=== PATIENT | female | born 1980 | race Caucasian/White ===

== ENCOUNTER 2019-07-28 20:21 | Emergency (ER) | payer SELFPAY ==
[2019-07-28 20:23] VITALS: BMI 23.0
--- NOTE | 2019-07-28 20:23 | ED_ITS ---
Entered by Varsha Latif acting as scribe for Documented by User: Andrew Palomino MD 07/28/19 21:13 HPI - Neuro Symptoms/Deficit General: Chief Complaint: Neuro Symptoms/Deficit Stated Complaint: STROKE LIKE SYMPTOMS Time Seen by Provider: 07/28/19 20:23 [facility] ED PFSH: Social History (Updated 07/16/19 @ 13:16 by Vicki Salazar LPN) Smoking and tobacco status: never smoked Course Vital Signs: Vital signs: Vital Signs Temperature 98.2 F 07/28/19 22:35 Pulse Rate 86 07/28/19 22:35 Respiratory Rate 18 07/28/19 22:35 Blood Pressure 148/81 07/28/19 22:35 Pulse Oximetry 97 07/28/19 22:05 MDM - Neuro Symptoms/Deficit Lab Data: Labs: Lab Results 07/28/19 07/28/19 07/28/19 Range/Units 20:34 20:34 20:34 WBC 6.8 (4.0-10.0) 10^3/ uL RBC 4.00 L (4.1-5.3) 10^6/u L Hgb 12.7 (11.5-15.3) g/dL Hct 37.3 (37.0-47.0) % MCV 93.3 (81-99) fL MCH 31.8 (28.0-34.0) pg MCHC 34.0 (30.0-36.0) g/dL RDW 12.1 (12.1-15.1) % Plt Count 197 (130-400) 10^3/c mm MPV 9.9 (7.4-10.4) fL Neut % (Auto) 48.3 % Lymph % (Auto) 39.7 % [place] % (Auto) 9.6 % Eos % (Auto) 1.5 % Baso % (Auto) 0.6 % Neut # (Auto) 3.3 (1.8-7.7) 10^3/u L Lymph # (Auto) 2.7 (0.8-4.8) 10^3/u L [place] # (Auto) 0.7 (0.2-0.9) 10^3/u L Eos # (Auto) 0.1 (0.0-0.8) 10^3/u L Baso # (Auto) 0.0 (0.0-0.1) 10^3/u L Nucleated RBC % (a uto) 0 % Nucleated RBCs # 0.0 /100WBC PT 13.40 H (10.5-13.3) SECO NDS INR 0.99 (0.8-1.2) APTT 31.3 (23.9-36.7) SECO NDS Sodium 138 (136-145) mmol/L Potassium 3.6 (3.5-5.1) mmol/L Chloride 102 (98-107) mmol/L Carbon Dioxide 23 (22-29) mmol/L Anion Gap 16.6 (5-19) BUN 9 (6-20) mg/dL Creatinine 0.7 (0.5-0.9) mg/dL GFR Calculation 94.7 (90-130) mL/min Glucose 115 (65-115) mg/dL Calcium 10.1 (8.5-10.5) mg/dL Total Bilirubin 0.7 (0.15-1.2) mg/dL AST 58 H (0-32) U/L ALT 101 H (0-33) U/L Alkaline Phosphata se 74 (35-105) IU/L Total Protein 7.7 (6.6-8.7) g/dL Albumin 4.2 (3.5-5.2) g/dL Globulin 3.5 (1.3-4.6) g/dL Discharge Plan Discharge Patient Disposition: Left Against Medical Advice Clinical Impression: Acute right hemiparesis, History of tympanomastoidectomy Condition: Stable Prescriptions: Continued hydroxyzine HCl 10 mg tablet 10 mg PO .four times daily PRNRF: 0 Referrals: Stephen Baker DO [Primary Care Provider] - Discharge Date/Time: 07/28/19 22:36 Coding Level of Care Code ED Military Pay Technician for Chg Fwd Documented by User: Jeffery Vazquez MD, [facility] [facility] 07/28/19 23:10 HPI - Neuro Symptoms/Deficit General: Chief Complaint: Neuro Symptoms/Deficit Stated Complaint: STROKE LIKE SYMPTOMS Time Seen by Provider: 07/28/19 20:23 Source: patient and RN notes reviewed Mode of arrival: wheelchair Limitations: physical limitation History of Present Illness: HPI Narrative: 38 yo female presents to ED with stroke like symptoms: loss of feeling in the R side of her face, her R arm, her R leg. The patient states this began 30 minutes ago. She said she had a busted R ear drum and had reconstructive surgery in [place], [place] on 07.25.2019. The patient states she ran a fever today and she took ibuprofen. Patient had a tympanomastoidectomy 3 days ago on the right. 30 minutes prior to arrival she developed right-sided facial and body numbness as well as right-sided upper and lower extremity weakness. No speech difficulties. Onset (ago): minute(s) (30) Time: 19:50 Last Observed Normal: 19:50 Timing confirmed by: family member and other (patient (alert and oriented)) Location: right face, right arm and right leg History of same: No Severity: severe Quality: weak, numb and constant Relieving factors: none Exacerbating factors: none Context: sudden onset On Anticoagulants: No Associated symptoms: Reports chest pain and weakness; Deny headache(s), nausea or vomiting Treatments Prior to Arrival: other (ibuprofen) Review of Systems General: Reports: 10 or more systems reviewed and unremarkable except in HPI and below Const: Denies: fever, chills or body aches Eyes: Reports: blind spots; Denies: change in vision or blurry vision ENMT: Denies: throat pain, enlarged tonsils, painful swallowing, hoarseness, mouth pain or swelling of lips/tongue Card: Reports: chest pain; Denies: palpitations, irregular heart rhythm, edema or swelling of feet/ankles Resp: Denies: shortness of breath, productive cough or non-productive cough GI: Denies: abdominal pain, nausea or vomiting : Denies: flank pain, difficulty urinating, painful urination, urinary frequency, urinary urgency or urinary hesitancy Musc: Denies: neck pain, back pain or extremity swelling Skin/Breast: Reports: rash; Denies: itching or redness Neuro: Reports: numbness in extremities, weakness in extremities, changes in sensation, lack of coordination and difficulty walking; Denies: headache, slurred speech or seizure-like activity Endo: Denies: excessive urination, excessive thirst or tired all the time PFSH ED PFSH: Social History (Updated 07/16/19 @ 13:16 by Vicki Salazar LPN) Smoking and tobacco status: never smoked NIH stroke score NIHSS: Level Of Consciousness - 1a: 0 Level Of Consciousness Questions - 1b: Both Correct Level Of Consciousness Commands - 1c: Both Correct Best Gaze - 2: Normal Visual Love - 3: No Visual Loss Facial Palsy - 4: Normal (R) Motor Arm Right - 5: Drift Motor Arm Left - 5: No Drift Motor Leg Right - 6: Effort Against Geyser Motor Leg Left - 6: No Drift Limb Ataxia - 7: Present In One Limb Sensory - 8: Severe To Total Loss (R) Best Language - 9: No Aphasia Dysarthia - 10: Normal Extinction And Inattention - 11: 0 Score: Total Score: 6 Physical Exam Const: COMMON NORMALS: no apparent distress, average body habitus, oriented x3, no limitations, healthy appearing, alert and well nourished HENMT: COMMON NORMALS: normocephalic, head/scalp atraumatic and moist oral mucous membranes HEAD & SCALP: normocephalic and atraumatic Eye: COMMON NORMALS: PERRL, EOMs intact bilaterally, conjunctivae normal and no scleral icterus CONJUNCTIVA: Yes conjunctivae normal PUPIL: Yes PERRL Neck/C-Spine: COMMON NORMALS: full ROM, supple, no meningeal signs, no JVD and no carotid bruits Chest: COMMONS NORMALS: inspection of chest normal and palpation of chest normal Resp: COMMON NORMALS: normal respiratory effort, no retractions, no use of accessory muscles, clear to auscultation bilaterally and percussion normal AUSCULTATION: clear to auscultation bilaterally PERCUSSION: percussion normal Cardio: COMMON NORMALS: no JVD, regular rate, regular rhythm, S1 normal heart sound, S2 normal heart sound, no gallops, no clicks, no murmurs, no rub and peripheral pulses 2+ throughout RATE: regular rate RHYTHM: regular rhythm HEART SOUNDS: S1 normal and S2 normal PERIPHERAL PULSES: pulses 2+ throughout GI: COMMON NORMALS: normal to inspection, nondistended, normoactive bowel sounds, soft to palpation, non-tender, no hepatosplenomegaly, no masses and no bruits PALPATION: Yes soft and Yes no hepatosplenomegaly : COMMON NORMALS: Yes no CVA tenderness BLADDER/KIDNEY EXAM: Yes no CVA tenderness Back/Pelvis: COMMON NORMALS: no CVA tenderness Extremity: COMMON NORMALS: normal to inspection, full ROM, normal capillary refill, no calf tenderness and no pedal edema Neuro: COMMON NORMALS: oriented x3 SENSORIUM/ORIENTATION: Yes alert MENINGEAL SIGNS: Yes no meningeal signs Skin: COMMON NORMALS: no wounds, skin turgor normal, no jaundice, no petechiae and no mottling GENERAL SKIN EXAM: turgor normal RASHES: rashes noted (Erythematous rash noted around the right side of lower face, and neck, and upper chest) Course Reevaluation(s): Reevaluation #1: The patient states that she wants to leave AGAINST MEDICAL ADVICE and have her family drive her up to [place] where the surgery was done. She continues to gain more strength on the right side of her body. She understands the risks involved including worsening of her condition and possibly . She however wants to drive up to [place] so she can be evaluated. Time: 22:29 Consultations: Consultation #1: Dr. Palomino, neurology. Vital Signs: Vital signs: Vital Signs Temperature 98.2 F 07/28/19 22:35 Pulse Rate 86 07/28/19 22:35 Respiratory Rate 18 07/28/19 22:35 Blood Pressure 148/81 07/28/19 22:35 Pulse Oximetry 97 07/28/19 22:05 MDM - Neuro Symptoms/Deficit MDM Narrative: Medical decision making narrative: 38-year-old female patient who is postop day 3 status post right tympanomastoidectomy. Today she developed a fever, erythematous rashes on her face neck and upper chest and subsequently developed right hemiparesis and paresthesia. Initial NIH score was 6, but she rapidly improved and her NIH score went down to about a 2 before she left the department. Head CT and head and neck CTA were both negative for acute findings. Since she had rapid improvement and especially as she had recent intracranial surgery after discussion between the patient and neurology it was decided that the risks of TPA outweigh the benefits in this patient. She therefore was not given TPA. She is however at risk for an intracranial infection and the plan was to further evaluate her with an MRI and possible lumbar puncture. The patient however was unwilling to wait and decided to leave AGAINST MEDICAL ADVICE as she wanted her family to drive her up to [place]. The patient was counseled on the risks involved which include worsening of her symptoms and possible . She however insisted and signed out AGAINST MEDICAL ADVICE. Medical Records: Attestation: I reviewed the patient's medical records. Lab Data: Attestation: I reviewed the patient's lab results. Labs: Lab Results 07/28/19 07/28/19 07/28/19 Range/Units 20:34 20:34 20:34 WBC 6.8 (4.0-10.0) 10^3/ uL RBC 4.00 L (4.1-5.3) 10^6/u L Hgb 12.7 (11.5-15.3) g/dL Hct 37.3 (37.0-47.0) % MCV 93.3 (81-99) fL MCH 31.8 (28.0-34.0) pg MCHC 34.0 (30.0-36.0) g/dL RDW 12.1 (12.1-15.1) % Plt Count 197 (130-400) 10^3/c mm MPV 9.9 (7.4-10.4) fL Neut % (Auto) 48.3 % Lymph % (Auto) 39.7 % [place] % (Auto) 9.6 % Eos % (Auto) 1.5 % Baso % (Auto) 0.6 % Neut # (Auto) 3.3 (1.8-7.7) 10^3/u L Lymph # (Auto) 2.7 (0.8-4.8) 10^3/u L [place] # (Auto) 0.7 (0.2-0.9) 10^3/u L Eos # (Auto) 0.1 (0.0-0.8) 10^3/u L Baso # (Auto) 0.0 (0.0-0.1) 10^3/u L Nucleated RBC % (a uto) 0 % Nucleated RBCs # 0.0 /100WBC PT 13.40 H (10.5-13.3) SECO NDS INR 0.99 (0.8-1.2) APTT 31.3 (23.9-36.7) SECO NDS Sodium 138 (136-145) mmol/L Potassium 3.6 (3.5-5.1) mmol/L Chloride 102 (98-107) mmol/L Carbon Dioxide 23 (22-29) mmol/L Anion Gap 16.6 (5-19) BUN 9 (6-20) mg/dL Creatinine 0.7 (0.5-0.9) mg/dL GFR Calculation 94.7 (90-130) mL/min Glucose 115 (65-115) mg/dL Calcium 10.1 (8.5-10.5) mg/dL Total Bilirubin 0.7 (0.15-1.2) mg/dL AST 58 H (0-32) U/L ALT 101 H (0-33) U/L Alkaline Phosphata se 74 (35-105) IU/L Total Protein 7.7 (6.6-8.7) g/dL Albumin 4.2 (3.5-5.2) g/dL Globulin 3.5 (1.3-4.6) g/dL Imaging Data^: CT Head: Radiologist's impression: [place] [address] CT Scan Report Signed Patient: Medardo Caputo #: [id number] : 1980Acct#:[id number] Age/Sex: 38 / FADM Date: 07/28/19 [facility] Attending Dr: Ordering Provider/Ordering MD: Jeffery Vazquez MD, [facility] [place] Date of Service: 07/28/19 Procedure(s): CT head wo con* [id number] Accession Number(s): [id number] Report Number: [id number] PROCEDURE INFORMATION: Exam: CT Head Without Contrast Exam date and time: 07/28/2019 8:31 PM Age: 38 years old Clinical indication: Weakness, extremity; Right; Prior surgery; Surgery date: Post-operative (0-2 days); Surgery type: R ear; Patient HX: C/O sudden onset R sided weakness; Additional info: Symptoms of acute stroke TECHNIQUE: Imaging protocol: Computed tomography of the head without contrast. Total DLP: 874.74 mGy-cm Radiation optimization: All CT scans at this facility use at least one of these dose optimization techniques: automated exposure control; mA and/or kV adjustment per patient size (includes targeted exams where dose is matched to clinical indication); or iterative reconstruction. Other technique: STROKE PROTOCOL was implemented. COMPARISON: No relevant prior studies available. FINDINGS: Brain: There is no evidence of infarct, sim-white matter differentiation is preserved. There is no hemorrhage or extra-axial collection. There is no mass. Ventricles: There is no hydrocephalus. Bones/joints: Unremarkable. No acute fracture. Sinuses: Visualized sinuses are unremarkable. No fluid levels. Mastoid air cells: There is fluid in the right middle ear and mastoid air cells. Auditory system: There is fluid or soft tissue in the right external auditory canal. Soft tissues: There is a sebaceous cyst on the right near the vertex. CT/CT head wo con* [id number] IMPRESSION: No intracranial lesion or injury. ASSESSMENT: ASPECTS (Nathalia Stroke Program Early CT Score) is 10 Radiation Dose CTDIVOL = (mGy): DLP = 874.74 (mGy-cm) Dictated By:Bran Brandt MD Signed By:Bran Brandt MDSigned Date/Time:07/28/192054 DD/ Other CT: Radiologist's impression: [place] [address] CT Scan Report Signed Patient: Medardo Caputo #: [id number] : 1980Acct#:[id number] Age/Sex: 38 / FADM Date: 07/28/19 Loc: ERRoom/Bed: Attending Dr: Ordering Provider/Ordering MD: Jeffery Vazquez MD, [facility] [place] Date of Service: 07/28/19 Procedure(s): CT angio headneck* [id number] Accession Number(s): [id number] Report Number: [id number] PROCEDURE INFORMATION: Exam: CT Angiography Head With Contrast Exam date and time: 07/28/2019 8:31 PM Age: 38 years old Clinical indication: Prior surgery; Surgery date: Post-operative (0-2 days); Surgery type: R ear; Patient HX: C/O sudden onset R sided weakness; Additional info: Right sided weakness TECHNIQUE: Imaging protocol: Computed tomography angiography of the head with intravenous contrast. 3D rendering: MIP and/or 3D reconstructed images were created by the technologist. Total DLP: 2294.11 mGy-cm Radiation optimization: All CT scans at this facility use at least one of these dose optimization techniques: automated exposure control; mA and/or kV adjustment per patient size (includes targeted exams where dose is matched to clinical indication); or iterative reconstruction. Contrast material: OMNI 350; Contrast volume: 95 ml; Contrast route: 20G; COMPARISON: CT head wo con* [id number] 07/28/2019 8:43 PM FINDINGS: Right internal carotid artery: Unremarkable. Intracranial segment is patent with no significant stenosis. No aneurysm. Right anterior cerebral artery: Unremarkable. No occlusion or significant stenosis. No aneurysm. Right middle cerebral artery: Unremarkable. No occlusion or significant stenosis. No aneurysm. Right posterior cerebral artery: Unremarkable. No occlusion or significant stenosis. No aneurysm. Right vertebral artery: Unremarkable. No occlusion or significant stenosis. No aneurysm. Left internal carotid artery: Unremarkable. Intracranial segment is patent with no significant stenosis. No aneurysm. Left anterior cerebral artery: Unremarkable. No occlusion or significant stenosis. No aneurysm. Left middle cerebral artery: Unremarkable. No occlusion or significant stenosis. No aneurysm. Left posterior cerebral artery: Unremarkable. No occlusion or significant stenosis. No aneurysm. Left vertebral artery: Unremarkable. No occlusion or significant stenosis. No aneurysm. Basilar artery: Unremarkable. No occlusion or significant stenosis. No aneurysm. NO EVIDENCE OF DURAL VENOUS STENOSIS OR OCCLUSION. IMPRESSION: Normal head CTA PROCEDURE INFORMATION: Exam: CT Angiography Neck With Contrast Exam date and time: 07/28/2019 8:31 PM Age: 38 years old Clinical indication: Prior surgery; Surgery date: Post-operative (0-2 days); Surgery type: R ear; Patient HX: C/O sudden onset R sided weakness; Additional info: Right sided weakness TECHNIQUE: Imaging protocol: Computed tomography angiography of the neck with intravenous contrast. 3D rendering: MIP and/or 3D reconstructed images were created by the technologist. Total DLP: 2294.11 mGy-cm Radiation optimization: All CT scans at this facility use at least one of these dose optimization techniques: automated exposure control; mA and/or kV adjustment per patient size (includes targeted exams where dose is matched to clinical indication); or iterative reconstruction. Contrast material: OMNI 350; Contrast volume: 95 ml; Contrast route: 20G; COMPARISON: CT head wo con* [id number] 07/28/2019 8:43 PM FINDINGS: VASCULATURE: Right common carotid artery: Unremarkable. No stenosis. No dissection or occlusion. Right internal carotid artery: Unremarkable extracranial segment. No stenosis. No dissection or occlusion. Right external carotid artery: Unremarkable. No occlusion or stenosis of the origin. Right vertebral artery: Unremarkable. No stenosis. No dissection or occlusion. Left common carotid artery: Unremarkable. No stenosis. No dissection or occlusion. Left internal carotid artery: Unremarkable extracranial segment. No stenosis. No dissection or occlusion. Left external carotid artery: Unremarkable. No occlusion or stenosis of the origin. Left vertebral artery: The left vertebral artery arises directly from the aortic arch, a normal variant. No stenosis. No dissection. NECK: Bones/joints: No acute fracture. Soft tissues: Normal. No significant soft tissue swelling. CT/CT angio headneck* [id number] IMPRESSION: No carotid or vertebral artery stenosis or dissection. COMMENT: Using NASCET method for measuring degree of carotid artery stenosis: Mild is less than 50% stenosis. Moderate is 50-69% stenosis. Severe is 70-94% stenosis. Near occlusion is 95-99% stenosis. Radiation Dose CTDIVOL = (mGy): DLP = 2294.11~2294.11 (mGy-cm) Dictated By:Bran Brandt MD Signed By:Bran Brandt MDSigned Date/Time:07/28/192100 DD/ Discharge Plan Discharge Patient Disposition: Left Against Medical Advice Clinical Impression: Acute right hemiparesis, History of tympanomastoidectomy Condition: Stable Prescriptions: Continued hydroxyzine HCl 10 mg tablet 10 mg PO .four times daily PRNRF: 0 Referrals: Stephen Baker DO [Primary Care Provider] - Discharge Date/Time: 07/28/19 22:36 Coding Level of Care Code ED Military Pay Technician for g Fwd The documentation recorded by the scribe, Latif,Varsha R, accurately reflects the service I personally performed and the decisions made by , Jeffery Vazquez MD, [facility] [place] Jul 28, 2019 20:21
--- NOTE | 2019-07-28 20:27 | PC.NURSE ---
Received patient to [facility] with complaint of right sided numbness, Patient alert and states she had ear surgery 2 days ago. Patient taken to Ct.
--- NOTE | 2019-07-28 20:30 | CTR_ITS ---
PROCEDURE INFORMATION: Exam: CT Angiography Head With Contrast Exam date and time: 07/28/2019 8:31 PM Age: 38 years old Clinical indication: Prior surgery; Surgery date: Post-operative (0-2 days); Surgery type: R ear; Patient HX: C/O sudden onset R sided weakness; Additional info: Right sided weakness TECHNIQUE: Imaging protocol: Computed tomography angiography of the head with intravenous contrast. 3D rendering: MIP and/or 3D reconstructed images were created by the technologist. Total DLP: 2294.11 mGy-cm Radiation optimization: All CT scans at this facility use at least one of these dose optimization techniques: automated exposure control; mA and/or kV adjustment per patient size (includes targeted exams where dose is matched to clinical indication); or iterative reconstruction. Contrast material: OMNI 350; Contrast volume: 95 ml; Contrast route: 20G; COMPARISON: CT head wo con* [id number] 07/28/2019 8:43 PM FINDINGS: Right internal carotid artery: Unremarkable. Intracranial segment is patent with no significant stenosis. No aneurysm. Right anterior cerebral artery: Unremarkable. No occlusion or significant stenosis. No aneurysm. Right middle cerebral artery: Unremarkable. No occlusion or significant stenosis. No aneurysm. Right posterior cerebral artery: Unremarkable. No occlusion or significant stenosis. No aneurysm. Right vertebral artery: Unremarkable. No occlusion or significant stenosis. No aneurysm. Left internal carotid artery: Unremarkable. Intracranial segment is patent with no significant stenosis. No aneurysm. Left anterior cerebral artery: Unremarkable. No occlusion or significant stenosis. No aneurysm. Left middle cerebral artery: Unremarkable. No occlusion or significant stenosis. No aneurysm. Left posterior cerebral artery: Unremarkable. No occlusion or significant stenosis. No aneurysm. Left vertebral artery: Unremarkable. No occlusion or significant stenosis. No aneurysm. Basilar artery: Unremarkable. No occlusion or significant stenosis. No aneurysm. NO EVIDENCE OF DURAL VENOUS STENOSIS OR OCCLUSION. IMPRESSION: Normal head CTA PROCEDURE INFORMATION: Exam: CT Angiography Neck With Contrast Exam date and time: 07/28/2019 8:31 PM Age: 38 years old Clinical indication: Prior surgery; Surgery date: Post-operative (0-2 days); Surgery type: R ear; Patient HX: C/O sudden onset R sided weakness; Additional info: Right sided weakness TECHNIQUE: Imaging protocol: Computed tomography angiography of the neck with intravenous contrast. 3D rendering: MIP and/or 3D reconstructed images were created by the technologist. Total DLP: 2294.11 mGy-cm Radiation optimization: All CT scans at this facility use at least one of these dose optimization techniques: automated exposure control; mA and/or kV adjustment per patient size (includes targeted exams where dose is matched to clinical indication); or iterative reconstruction. Contrast material: OMNI 350; Contrast volume: 95 ml; Contrast route: 20G; COMPARISON: CT head wo con* [id number] 07/28/2019 8:43 PM FINDINGS: VASCULATURE: Right common carotid artery: Unremarkable. No stenosis. No dissection or occlusion. Right internal carotid artery: Unremarkable extracranial segment. No stenosis. No dissection or occlusion. Right external carotid artery: Unremarkable. No occlusion or stenosis of the origin. Right vertebral artery: Unremarkable. No stenosis. No dissection or occlusion. Left common carotid artery: Unremarkable. No stenosis. No dissection or occlusion. Left internal carotid artery: Unremarkable extracranial segment. No stenosis. No dissection or occlusion. Left external carotid artery: Unremarkable. No occlusion or stenosis of the origin. Left vertebral artery: The left vertebral artery arises directly from the aortic arch, a normal variant. No stenosis. No dissection. NECK: Bones/joints: No acute fracture. Soft tissues: Normal. No significant soft tissue swelling. CT/CT angio headneck* [id number] IMPRESSION: No carotid or vertebral artery stenosis or dissection. COMMENT: Using NASCET method for measuring degree of carotid artery stenosis: Mild is less than 50% stenosis. Moderate is 50-69% stenosis. Severe is 70-94% stenosis. Near occlusion is 95-99% stenosis. Radiation Dose CTDIVOL = (mGy): DLP = 2294.11~2294.11 (mGy-cm)
--- NOTE | 2019-07-28 20:30 | CTR_ITS ---
PROCEDURE INFORMATION: Exam: CT Head Without Contrast Exam date and time: 07/28/2019 8:31 PM Age: 38 years old Clinical indication: Weakness, extremity; Right; Prior surgery; Surgery date: Post-operative (0-2 days); Surgery type: R ear; Patient HX: C/O sudden onset R sided weakness; Additional info: Symptoms of acute stroke TECHNIQUE: Imaging protocol: Computed tomography of the head without contrast. Total DLP: 874.74 mGy-cm Radiation optimization: All CT scans at this facility use at least one of these dose optimization techniques: automated exposure control; mA and/or kV adjustment per patient size (includes targeted exams where dose is matched to clinical indication); or iterative reconstruction. Other technique: STROKE PROTOCOL was implemented. COMPARISON: No relevant prior studies available. FINDINGS: Brain: There is no evidence of infarct, sim-white matter differentiation is preserved. There is no hemorrhage or extra-axial collection. There is no mass. Ventricles: There is no hydrocephalus. Bones/joints: Unremarkable. No acute fracture. Sinuses: Visualized sinuses are unremarkable. No fluid levels. Mastoid air cells: There is fluid in the right middle ear and mastoid air cells. Auditory system: There is fluid or soft tissue in the right external auditory canal. Soft tissues: There is a sebaceous cyst on the right near the vertex. CT/CT head wo con* [id number] IMPRESSION: No intracranial lesion or injury. ASSESSMENT: ASPECTS ([place] Stroke Program Early CT Score) is 10 Radiation Dose CTDIVOL = (mGy): DLP = 874.74 (mGy-cm)
--- NOTE | 2019-07-28 20:30 | ECG_ITS ---
Measurements Intervals [place] Rate: 83 P: 250 VA: 162 QRS: 244 QRSD: 85 T: 240 QT: 382 QTc: 449 ECTOPIC ATRIAL RHYTHM POSSIBLY, ARM LEAD REVERSAL MARKED RIGHT AXIS DEVIATION [QRS AXIS > 100] MARKED T-WAVE ABNORMALITY, CONSIDER INFERIOR ISCHEMIA [-0.5+ mV T WAVE IN II/aVF] No previous ECG available for comparison Electronically Signed On 07-29-2019 17:07:52 GLASS ARTIST by Maylin Berg M.D. [email or web address]
[2019-07-28 20:39] LABS: Basophils % 0.6 %; Eosinophils # 0.1 10^3/uL (0.0-0.8); Eosinophils % 1.5 %; Hematocrit 37.3 % (37.0-47.0); Hemoglobin 12.7 g/dL (11.5-15.3); Lymphocytes # 2.7 10^3/uL (0.8-4.8); Lymphocytes % 39.7 %; Mean Corpuscular Hemoglobin 31.8 pg (28.0-34.0); Mean Corpuscular Volume 93.3 fL (81-99); Mean Platelet Volume 9.9 fL (7.4-10.4); Monocytes # 0.7 10^3/uL (0.2-0.9); Monocytes % 9.6 %; Neutrophils # 3.3 10^3/uL (1.8-7.7); Neutrophils % 48.3 %; Nucleated Red Blood Cells % 0 %; Platelet Count 197 10^3/cmm (130-400); Red Cell Distribution Width 12.1 % (12.1-15.1); White Blood Count 6.8 10^3/uL (4.0-10.0)
--- NOTE | 2019-07-28 20:40 | PC.NURSE ---
Stroke cooridinator in room to access patient.
[2019-07-28] MEDS: iohexol 350 mg/mL 100 mL Btl IV (20:49)
[2019-07-28 20:50] LABS: INR 0.99 (0.8-1.2); Partial Thromboplastin Time 31.3 SECONDS (23.9-36.7)
[2019-07-28 20:56] LABS: Alanine Aminotransferase 101 U/L (0-33); Albumin Level 4.2 g/dL (3.5-5.2); Alkaline Phosphatase 74 IU/L (35-105); Anion Gap 16.6 (5-19); Aspartate Amino Transferase 58 U/L (0-32); Blood Urea Nitrogen 9 mg/dL (6-20); Calcium 10.1 mg/dL (8.5-10.5); Carbon Dioxide 23 mmol/L (22-29); Chloride 102 mmol/L (98-107); Globulin 3.5 g/dL (1.3-4.6); Glomerular Filtration Rate 94.7 mL/min (90-130); Glucose 115 mg/dL (65-115); Potassium 3.6 mmol/L (3.5-5.1); Sodium 138 mmol/L (136-145); Total Bilirubin 0.7 mg/dL (0.15-1.2); Total Protein 7.7 g/dL (6.6-8.7)
--- NOTE | 2019-07-28 21:13 | P.PNCC_ITS ---
Stroke Alert Activation ED Arrival Date: 07/28/19 Last Known Normal/at Baseline: < 1 hour ago (1939) Stroke Alert Activated by: er Stroke Alert Activation Date: 07/28/19 Stroke Alert Activation Time: 20:25 Stroke MD @ Bedside Date: 07/28/19 Stroke MD @ Bedside Time: 20:55 NIH Stroke Scale Time: 20:55 NIH Stroke Scale Score: NIH Stroke Scale Score: 2 NIH stroke score NIHSS: Level Of Consciousness - 1a: 0 Level Of Consciousness Questions - 1b: Both Correct Level Of Consciousness Commands - 1c: Both Correct Best Gaze - 2: Normal Visual Love - 3: No Visual Loss Facial Palsy - 4: Normal Motor Arm Right - 5: Drift Motor Arm Left - 5: No Drift Motor Leg Right - 6: No Drift Motor Leg Left - 6: No Drift Limb Ataxia - 7: Absent Sensory - 8: Mild To Moderate Loss Best Language - 9: No Aphasia Dysarthia - 10: Normal Extinction And Inattention - 11: 0 Score: Total Score: 2 Stroke Alert Data/Treatment Time to CT of Head: 20:30 tPA Contraindication: tPA Contraindication: Treatment not indcated and Medical contraindication Other Information: The initial NIHSS was 6, for my exam it has improved to 2. She has rapidly improving deficits. She also has recent major cranial surgery with potential infectious complications. In my opinion the balance of risk benefit is against administration of TPA. There is no large vessel occlusion that would be a target for endovascualar therapy. There was no obvious mass or abscess on the contrasted CTA, but this was an suboptimal study to evaluate for posterior fossa pathology. I discussed this with her and she agrees that potential hemorrhagic complications outweigh the benefits given her presently mild right sided numbness and weakness. She elects against TPA. I would recommend that she be evaluated by her surgeons for possible infectious complications given her report of persistent fever and development of new rash. She does not clinically appear to have bacterial meningitis at this time, but this is a potential complication of her recent surgery. She likely should have an MRI brain with and without contrast to evaluate for abscess/mastoiditis. There should be a low threshold for a lumbar puncture. Critical Care Time Critical Care Time: 30 - 74 mins Coding Level of Care Code Acute [employer] Operator for Yusef Garber
[2019-07-28 22:05] VITALS: RESP 18; O2SAT 97
--- NOTE | 2019-07-28 22:20 | PC.NURSE ---
Patient wishes to leave [facility] and will have her family drive her to other hospital, notified.
--- NOTE | 2019-07-28 22:33 | PC.NURSE ---
Patient signed AMA form states she is going directly to [facility]. Iv removed with cath tip intact.
[2019-07-28 22:35] VITALS: BP 148/81; PULSE 86; RESP 18; TEMP 36.8
== END 2019-07-28 22:36 | disposition left against medical advice (07) ==
PROVIDERS: Emergency Provider Family Medicine; PCP Family Medicine
DX: G81.91 Hemiplegia, unspecified affecting right dominant side (principal); Z98.890 Other specified postprocedural states; Z53.29 Procedure and treatment not carried out because of patient's decision for other reasons
CPT/HCPCS: 12345; 70450; 70496; 70498; 80053; 85025; 85610; 85730; 93005; 99282; 99284; Q9967

== ENCOUNTER 2019-11-27 14:23 | Emergency (ER) | payer SELFPAY ==
[2019-11-27 14:27] VITALS: BP 131/75; PULSE 66; RESP 17; TEMP 36.7; O2SAT 98; BMI 23.0
[2019-11-27 14:49] VITALS: O2SAT 98
[2019-11-27 14:58] LABS: Basophils # 0.1 10^3/uL (0.0-0.1); Basophils % 0.9 %; Eosinophils # 0.1 10^3/uL (0.0-0.8); Eosinophils % 1.9 %; Hematocrit 42.8 % (37.0-47.0); Hemoglobin 14.1 g/dL (11.5-15.3); Lymphocytes # 2.4 10^3/uL (0.8-4.8); Lymphocytes % 41.6 %; Mean Corpuscular HGB Conc 32.9 g/dL (30.0-36.0); Mean Corpuscular Volume 100.2 fL (81-99); Mean Platelet Volume 10.4 fL (7.4-10.4); Monocytes # 0.5 10^3/uL (0.2-0.9); Monocytes % 8.1 %; Neutrophils # 2.7 10^3/uL (1.8-7.7); Neutrophils % 47.1 %; Nucleated Red Blood Cells % 0 %; Platelet Count 203 10^3/cmm (130-400); Red Blood Count 4.27 10^6/uL (4.1-5.3); Red Cell Distribution Width 12.8 % (12.1-15.1); White Blood Count 5.7 10^3/uL (4.0-10.0)
--- NOTE | 2019-11-27 15:10 | ED_ITS ---
HPI - Nausea/Vomiting/Diarrhea General: Chief complaint: Nausea/Vomiting/Diarrhea Stated complaint: n/v/ hep c Time Seen by Provider: 11/27/19 14:24 History of Present Illness: HPI Narrative: Patient complains of nausea and vomiting for the past 2 weeks. She states that she primarily throws up the mornings and evenings. She states she cannot be as her tubes are tied. She is running no fever. She denies any diarrhea. Patient does not complain o f abdominal pain. MD elicited complaint: nausea and vomiting Review of Systems General: Reports: 10 or more systems reviewed and unremarkable except in HPI and below PFSH ED PFSH: Social History Smoking and tobacco status: former smoker Alcohol intake: former Physical Exam Const: COMMON NORMALS: no acute distress, healthy appearing and well nourished GENERAL APPEARANCE: cooperative and well developed HENMT: COMMON NORMALS: normocephalic and atraumatic HEAD & SCALP: normal to inspection, normocephalic and atraumatic Eye: GENERAL EYE: appearance normal, both eyes and all related structures Neck/C-Spine: COMMON NORMALS: full ROM, no lymphadenopathy and no meningeal signs GENERAL: Yes normal visual inspection CERVICAL SPINE: Yes cervical ROM normal and Yes normal cervical lordosis Chest: COMMONS NORMALS: normal inspection of the chest and normal palpation of entire chest wall Resp: COMMON NORMALS: normal respiratory effort, clear to auscultation bilaterally and percussion normal AUSCULTATION: clear to auscultation bilaterally PERCUSSION: percussion normal Cardio: COMMON NORMALS: regular rate, regular rhythm, S1 normal heart sound present and S2 normal heart sound present JUGULAR VENOUS DISTENTION: no JVD PALPATION: normal PMI RATE: regular rate RHYTHM: regular rhythm HEART SOUNDS: S1 normal heart sound present and S2 normal heart sound present GI: COMMON NORMALS: Soft to palpation and No hepatosplenomegaly present INSPECTION: Yes normal to inspection PALPATION: Yes Soft to palpation and Yes No hepatosplenomegaly present PERCUSSION: normal to percussion : COMMON NORMALS: Yes no CVA tenderness BLADDER/KIDNEY EXAM: Yes no CVA tenderness Back/Pelvis: COMMON NORMALS: no CVA tenderness, thoracic and lumbar spine normal to inspection and thoraco-lumbar ROM normal Extremity: COMMON NORMALS: normal to inspection, full ROM and capillary refill normal Neuro: MENINGEAL SIGNS: Yes no meningeal signs Skin: COMMON NORMALS: no rashes or lesions noted, no wounds and turgor normal GENERAL SKIN EXAM: no rashes or lesions noted, elasticity normal and turgor normal LESIONS: no lesions RASHES: no rashes TRAUMA: no lacerations or abrasions HAIR: normal NAILS: normal Course Vital Signs: Vital signs: Vital Signs Temperature 98.1 F 11/27/19 14:27 Pulse Rate 66 11/27/19 14:27 Respiratory Rate 17 11/27/19 14:27 Blood Pressure 131/75 11/27/19 14:27 Pulse Oximetry 98 11/27/19 14:49 MDM - Nausea/Vomiting/Diarrhea Lab Data: Labs: Lab Results 11/27/19 11/27/19 11/27/19 Range/Units 14:43 14:43 14:43 WBC 5.7 (4.0-10.0) 10^3/ uL RBC 4.27 (4.1-5.3) 10^6/u L Hgb 14.1 (11.5-15.3) g/dL Hct 42.8 (37.0-47.0) % MCV 100.2 H (81-99) fL MCH 33.0 (28.0-34.0) pg MCHC 32.9 (30.0-36.0) g/dL RDW 12.8 (12.1-15.1) % Plt Count 203 (130-400) 10^3/c mm MPV 10.4 (7.4-10.4) fL Neut % (Auto) 47.1 % Lymph % (Auto) 41.6 % [place] % (Auto) 8.1 % Eos % (Auto) 1.9 % Baso % (Auto) 0.9 % Neut # (Auto) 2.7 (1.8-7.7) 10^3/u L Lymph # (Auto) 2.4 (0.8-4.8) 10^3/u L [place] # (Auto) 0.5 (0.2-0.9) 10^3/u L Eos # (Auto) 0.1 (0.0-0.8) 10^3/u L Baso # (Auto) 0.1 (0.0-0.1) 10^3/u L Nucleated RBC % (a uto) 0 % Nucleated RBCs # 0.0 /100WBC PT 12.90 (10.5-13.3) SECO NDS INR 0.95 (0.8-1.2) APTT 29.1 (23.9-36.7) SECO NDS Sodium 139 (136-145) mmol/L Potassium 4.0 (3.5-5.1) mmol/L Chloride 103 (98-107) mmol/L Carbon Dioxide 26 (22-29) mmol/L Anion Gap 14.0 (5-19) BUN 7 (6-20) mg/dL Creatinine 0.5 (0.5-0.9) mg/dL GFR Calculation 138.8 H (90-130) mL/min Glucose 97 (65-115) mg/dL Calculated Osmolal ity 284 L (285-295) mOsm/k g Lactate (0.5-2.2) mmol/L Calcium 9.7 (8.5-10.5) mg/dL Phosphorus 2.7 (2.5-4.5) mg/dL Magnesium 2.2 (1.7-2.3) mg/dL Total Bilirubin 0.4 (0.15-1.2) mg/dL AST 123 H (0-32) U/L ALT 158 H (0-33) U/L Alkaline Phosphata se 80 (35-105) IU/L Total Protein 7.4 (6.6-8.7) g/dL Albumin 4.7 (3.5-5.2) g/dL Globulin 2.7 (1.3-4.6) g/dL Lipase 33 (13-60) U/L TSH 1.10 (0.27-4.20) uIU/ mL HCG, Qual (Negative) Urine Color (Yellow) Urine Appearance (CLEAR) Urine pH (5-7) Ur Specific Gravit y (1.005-1.030) Urine Protein (Negative) Urine Glucose (UA) (Normal) Urine Ketones (Negative) Urine Blood (Negative) Urine Nitrate (Negative) Urine Bilirubin (NEGATIVE) Urine Urobilinogen (Negative) mg/dL Ur Leukocyte Bisi ase (Negative) Urine Opiates Scre en (Negative) ng/mL Ur Barbiturates Sc reen (Negative) ng/mL Ur Phencyclidine S crn (Negative) ng/mL Ur Amphetamines Sc reen (Negative) ng/mL U Benzodiazepines Scrn (Negative) ng/mL Urine Cocaine Scre en (Negative) ng/mL U Marijuana (THC) Screen (Negative) ng/mL 11/27/19 11/27/19 11/27/19 Range/Units 14:43 14:43 15:12 WBC (4.0-10.0) 10^3/ uL RBC (4.1-5.3) 10^6/u L Hgb (11.5-15.3) g/dL Hct (37.0-47.0) % MCV (81-99) fL MCH (28.0-34.0) pg MCHC (30.0-36.0) g/dL RDW (12.1-15.1) % Plt Count (130-400) 10^3/c mm MPV (7.4-10.4) fL Neut % (Auto) % Lymph % (Auto) % [place] % (Auto) % Eos % (Auto) % Baso % (Auto) % Neut # (Auto) (1.8-7.7) 10^3/u L Lymph # (Auto) (0.8-4.8) 10^3/u L [place] # (Auto) (0.2-0.9) 10^3/u L Eos # (Auto) (0.0-0.8) 10^3/u L Baso # (Auto) (0.0-0.1) 10^3/u L Nucleated RBC % (a uto) % Nucleated RBCs # /100WBC PT (10.5-13.3) SECO NDS INR (0.8-1.2) APTT (23.9-36.7) SECO NDS Sodium (136-145) mmol/L Potassium (3.5-5.1) mmol/L Chloride (98-107) mmol/L Carbon Dioxide (22-29) mmol/L Anion Gap (5-19) BUN (6-20) mg/dL Creatinine (0.5-0.9) mg/dL GFR Calculation (90-130) mL/min Glucose (65-115) mg/dL Calculated Osmolal ity (285-295) mOsm/k g Lactate 0.8 (0.5-2.2) mmol/L Calcium (8.5-10.5) mg/dL Phosphorus (2.5-4.5) mg/dL Magnesium (1.7-2.3) mg/dL Total Bilirubin (0.15-1.2) mg/dL AST (0-32) U/L ALT (0-33) U/L Alkaline Phosphata se (35-105) IU/L Total Protein (6.6-8.7) g/dL Albumin (3.5-5.2) g/dL Globulin (1.3-4.6) g/dL Lipase (13-60) U/L TSH (0.27-4.20) uIU/ mL HCG, Qual Negative (Negative) Urine Color Straw (Yellow) Urine Appearance Clear (CLEAR) Urine pH 7.0 (5-7) Ur Specific Gravit y 1.010 (1.005-1.030) Urine Protein Neg (Negative) Urine Glucose (UA) Norm (Normal) Urine Ketones Negative (Negative) Urine Blood Neg (Negative) Urine Nitrate Negative (Negative) Urine Bilirubin Neg (NEGATIVE) Urine Urobilinogen Norm (Negative) mg/dL Ur Leukocyte Bisi ase Negative (Negative) Urine Opiates Scre en (Negative) ng/mL Ur Barbiturates Sc reen (Negative) ng/mL Ur Phencyclidine S crn (Negative) ng/mL Ur Amphetamines Sc reen (Negative) ng/mL U Benzodiazepines Scrn (Negative) ng/mL Urine Cocaine Scre en (Negative) ng/mL U Marijuana (THC) Screen (Negative) ng/mL 11/27/19 Range/Units 15:12 WBC (4.0-10.0) 10^3/ uL RBC (4.1-5.3) 10^6/u L Hgb (11.5-15.3) g/dL Hct (37.0-47.0) % MCV (81-99) fL MCH (28.0-34.0) pg MCHC (30.0-36.0) g/dL RDW (12.1-15.1) % Plt Count (130-400) 10^3/c mm MPV (7.4-10.4) fL Neut % (Auto) % Lymph % (Auto) % [place] % (Auto) % Eos % (Auto) % Baso % (Auto) % Neut # (Auto) (1.8-7.7) 10^3/u L Lymph # (Auto) (0.8-4.8) 10^3/u L [place] # (Auto) (0.2-0.9) 10^3/u L Eos # (Auto) (0.0-0.8) 10^3/u L Baso # (Auto) (0.0-0.1) 10^3/u L Nucleated RBC % (a uto) % Nucleated RBCs # /100WBC PT (10.5-13.3) SECO NDS INR (0.8-1.2) APTT (23.9-36.7) SECO NDS Sodium (136-145) mmol/L Potassium (3.5-5.1) mmol/L Chloride (98-107) mmol/L Carbon Dioxide (22-29) mmol/L Anion Gap (5-19) BUN (6-20) mg/dL Creatinine (0.5-0.9) mg/dL GFR Calculation (90-130) mL/min Glucose (65-115) mg/dL Calculated Osmolal ity (285-295) mOsm/k g Lactate (0.5-2.2) mmol/L Calcium (8.5-10.5) mg/dL Phosphorus (2.5-4.5) mg/dL Magnesium (1.7-2.3) mg/dL Total Bilirubin (0.15-1.2) mg/dL AST (0-32) U/L ALT (0-33) U/L Alkaline Phosphata se (35-105) IU/L Total Protein (6.6-8.7) g/dL Albumin (3.5-5.2) g/dL Globulin (1.3-4.6) g/dL Lipase (13-60) U/L TSH (0.27-4.20) uIU/ mL HCG, Qual (Negative) Urine Color (Yellow) Urine Appearance (CLEAR) Urine pH (5-7) Ur Specific Gravit y (1.005-1.030) Urine Protein (Negative) Urine Glucose (UA) (Normal) Urine Ketones (Negative) Urine Blood (Negative) Urine Nitrate (Negative) Urine Bilirubin (NEGATIVE) Urine Urobilinogen (Negative) mg/dL Ur Leukocyte Bisi ase (Negative) Urine Opiates Scre en Negative (Negative) ng/mL Ur Barbiturates Sc reen Negative (Negative) ng/mL Ur Phencyclidine S crn Negative (Negative) ng/mL Ur Amphetamines Sc reen Negative (Negative) ng/mL U Benzodiazepines Scrn Negative (Negative) ng/mL Urine Cocaine Scre en Negative (Negative) ng/mL U Marijuana (THC) Screen Positive H (Negative) ng/mL Discharge Plan Discharge Patient Disposition: Home, Self-Care Clinical Impression: Cyclical vomiting syndrome Nausea & vomiting Qualifiers: Vomiting type: unspecified Vomiting Intractability: unspecified Qualified Code(s): R11.2 - Nausea with vomiting, unspecified Condition: Stable Prescriptions: New Zofran 4 mg tablet 4 mg PO Q6H PRN (Reason: nausea and vomiting) Qty: 10 RF: 1 No Action Multiple Vitamins Tablet 1 tab PO DAILY RF: 0 lisinopril 20 mg tablet 20 mg PO DAILY RF: 0 promethazine 25 mg tablet See Rx Instructions .ROUTE .COMPLEX RF: 0 Probiotic 1 cap PO DAILY RF: 0 Discharge Orders: Discharge Order (Routine); Ordered 11/27/19 Ordered By: Tristan Quiñones Coding Level of Care Code ED Cigarette Tipper for Bhavyag Fwd Exam Comprehensive
[2019-11-27 15:18] LABS: HCG, Serum Qual Negative (Negative)
[2019-11-27 15:19] LABS: Add Urine Microscopic? NO
[2019-11-27] MEDS: sodium chloride 0.9% 1,000 ML 999 ML IV (15:22)
[2019-11-27] MEDS: ondansetron 2 mg/ML SDV 2 mL 4 MG IVP (15:22)
[2019-11-27 15:29] LABS: Lactate (Lactic Acid level) 0.8 mmol/L (0.5-2.2)
[2019-11-27 15:35] LABS: Alanine Aminotransferase 158 U/L (0-33); Albumin Level 4.7 g/dL (3.5-5.2); Alkaline Phosphatase 80 IU/L (35-105); Aspartate Amino Transferase 123 U/L (0-32); Blood Urea Nitrogen 7 mg/dL (6-20); Calcium 9.7 mg/dL (8.5-10.5); Carbon Dioxide 26 mmol/L (22-29); Chloride 103 mmol/L (98-107); Globulin 2.7 g/dL (1.3-4.6); Glomerular Filtration Rate 138.8 mL/min (90-130); Glucose 97 mg/dL (65-115); Lipase 33 U/L (13-60); Magnesium 2.2 mg/dL (1.7-2.3); Osmolality Calculated 284 mOsm/kg (285-295); Phosphorus 2.7 mg/dL (2.5-4.5); Sodium 139 mmol/L (136-145); Total Bilirubin 0.4 mg/dL (0.15-1.2); Total Protein 7.4 g/dL (6.6-8.7)
[2019-11-27 15:37] LABS: Amphetamines Screen Urine Negative (Negative); Barbiturates Screen Urine Negative (Negative); Benzodiazepines Screen Urine Negative (Negative); Cocaine Screen Urine Negative (Negative); Opiate Screen Urine Negative (Negative); PCP Screen Urine Negative (Negative); THC Screen Urine Positive (Negative)
[2019-11-27 15:41] LABS: Bilirubin Urine Neg (NEGATIVE); Blood Urine Neg (Negative); Glucose Urine UA Norm (Normal); Ketones Urine Negative (Negative); Leukocyte Esterase Urine Negative (Negative); Nitrate Urine Negative (Negative); Protein Urine Neg (Negative); Urine Appearance Clear (CLEAR); Urine Color Straw (Yellow); Urobilinogen Urine Norm (Negative)
[2019-11-27 15:41] LABS: INR 0.95 (0.8-1.2); Partial Thromboplastin Time 29.1 SECONDS (23.9-36.7)
[2019-11-27 16:02] VITALS: BP 116/82; PULSE 52; O2SAT 100
== END 2019-11-27 16:02 | disposition home or self-care (01) ==
PROVIDERS: Emergency Provider Family Medicine
DX: R11.15 Cyclical vomiting syndrome unrelated to migraine (principal); Z87.891 Personal history of nicotine dependence
CPT/HCPCS: 12345; 36415; 80053; 80306; 81003; 83605; 83690; 83735; 84100; 84443; 84703; 85025; 85610; 85730; 87040; 96361; 96374; 96375; 99283; J2405; J7030

== ENCOUNTER → 2019-12-10 12:49 | Outpatient (BNVA) | payer SELFPAY | PROVIDERS: Visit Provider Nurse Practitioner | DX: R05 Cough (principal) | CPT/HCPCS: 87635 ==

== ENCOUNTER 2021-06-13 00:47 | Emergency (ER) | payer BC, SELFPAY ==
[2021-06-13 00:52] VITALS: BP 146/84; PULSE 77; RESP 17; TEMP 36.8; O2SAT 99; BMI 29.1
--- NOTE | 2021-06-13 01:05 | ED_ITS ---
HPI - Abdominal Pain General: Chief Complaint: Abdominal Pain Stated Complaint: pains throughout back and leg Time Seen by Provider: 06/13/21 00:49 History of Present Illness: HPI narrative: Patient is a 40-year-old female comes to the ED with right flank pain. Patient says symptoms started couple hours ago and it was an acute onset of pain. She has never had a pain like this before. She denies any injury or trauma to cause pain. She rates her pain a 9 out of 10 and says it starts in her right mid back and radiates around to her right groin. Torso movements cause worsening pain. Patient says she is never had a kidney stone before. Denies any dysuria or hematuria. Patient started her menstrual period today June 13, 2021. Denies dysuria or hematuria. Associated Symptoms: Denies chills, constipation, diarrhea, dysuria, fever(s), hematochezia, hematuria, nausea and vomiting Related Data: Date of Last Menstrual Period: 06/13/20 Review of Systems Const: Denies: fever(s), chills or fatigue Eyes: Denies: change in vision or eye discomfort ENMT: Denies: throat pain, odynophagia, nasal discharge or nasal congestion Card: Denies: chest pain, palpitations, edema, swelling of feet/ankles, dyspnea on exertion or orthopnea Resp: Denies: dyspnea, productive cough or non-productive cough GI: Denies: abdominal pain, nausea, vomiting, diarrhea, constipation or hematochezia : Reports: flank pain (right flank); Denies: dysuria or hematuria Musc: Denies: neck pain, back pain or extremity swelling Skin/Breast: Denies: rash or new lesions Neuro: Denies: headache(s), numbness in extremities or weakness in extremities PFS ED PFSH: Social History Smoking and tobacco status: former smoker Alcohol intake: former Female Reproductive History: Date of last menstrual period: 06/13/20 Physical Exam Const: COMMON NORMALS: patient oriented x3 and alert GENERAL APPEARANCE: cooperative; not comfortable (pt appears uncomfortable and in some pain) HENMT: COMMON NORMALS: normocephalic HEAD & SCALP: normocephalic MOUTH: Normal oral and palatal mucosa present THROAT: posterior oropharynx normal and uvula midline Eye: COMMON NORMALS: Equal, round and reactive pupils present PUPIL: Yes Equal, round and reactive pupils present Neck/C-Spine: COMMON NORMALS: supple GENERAL: Yes normal visual inspection Resp: COMMON NORMALS: normal respiratory effort, No retractions, No use of accessory muscles and clear to auscultation bilaterally AUSCULTATION: clear to auscultation bilaterally Cardio: COMMON NORMALS: regular rate, regular rhythm, S1 normal heart sound present, S2 normal heart sound present, No gallops present (Cardio), No clicks present (Cardio), No murmurs present (Cardio) and Peripheral pulses 2+ throughout RATE: regular rate RHYTHM: regular rhythm HEART SOUNDS: S1 normal heart sound present and S2 normal heart sound present PERIPHERAL PULSES: Peripheral pulses 2+ throughout GI: COMMON NORMALS: Normal to inspection, nondistended, normoactive bowel sounds present, Soft to palpation, non-tender and no masses PALPATION: Yes Soft to palpation : BLADDER/KIDNEY EXAM: Yes CVA tenderness Back/Pelvis: GENERAL BACK: Yes CVA tenderness CVA tenderness: right THORACIC SPINE/UPPER BACK: Yes paraspinal muscle tenderness Thoracic paraspinal muscle tenderness: right Right thoracic paraspinal muscle tenderness: T8, T9 and T10 Extremity: COMMON NORMALS: normal to inspection Neuro: COMMON NORMALS: patient oriented x3 SENSORIUM/ORIENTATION: Yes alert GAIT: Yes Normal gait present Skin: GENERAL SKIN EXAM: dry skin Course Vital Signs: Vital signs: Vital Signs Temperature 98.2 F 06/13/21 00:52 Pulse Rate 77 06/13/21 00:52 Respiratory Rate 17 06/13/21 00:52 Blood Pressure 146/84 06/13/21 00:52 Pulse Oximetry 99 06/13/21 00:52 MDM - Abdominal Pain MDM Narrative: Medical decision making narrative: Patient is a 40-year-old female comes to the ED with right sided back pain. Symptoms started tonight. Sudden onset of symptoms tonight. Denies any injury or trauma to cause symp toms. She has worsening pain in back with movement. Vital stable. Exam patient still shows some right-sided thoracic paraspinal muscle tenderness along with right CVA tenderness. Rest of exam was benign. CBC, CMP were unremarkable. hCG negative. Urine showed a lot of red blood cells, but patient is currently on menstrual period. CT kidney stone performed and no kidney stones or any other acute findings noted. Patient was given a dose of Toradol and Norflex while here in the ED. She was diagnosed with musculoskeletal back pain and discharged home with a prescription for Celebrex and cyclobenzaprine. She was told to follow-up with her PCP 7 to 10 days for reevaluation. Return to ED precautions given. Patient understood and agree with plan. Lab Data: Attestation: I reviewed the patient's lab results. Labs: Lab Results 06/13/21 06/13/21 06/13/21 01:00 01:10 01:10 WBC 9.8 10^3/uL 10^3/ uL (4.0-10.0) RBC 4.22 10^6/uL 10^6 /uL (4.1-5.3) Hgb 13.9 g/dL g/dL (11.5-15.3) Hct 40.9 % % (37.0-47.0) MCV 96.9 fl fl (81-99) MCH 32.9 pg pg (28.0-34.0) MCHC 34.0 g/dL g/dL (30.0-36.0) RDW 12.2 % % (12.1-15.1) Plt Count 224 10^3/cmm 10^3 /cmm (130-400) MPV 10.3 fL fL (7.4-10.4) Neut % (Auto) 57.6 % % Lymph % (Auto) 31.9 % % Falls % (Auto) 7.7 % % Eos % (Auto) 1.8 % % Baso % (Auto) 0.7 % % Neut # (Auto) 5.64 10^3/uL 10^3 /uL (1.8-7.7) Lymph # (Auto) 3.1 10^3/uL 10^3/ uL (0.8-4.8) Falls # (Auto) 0.8 10^3/uL 10^3/ uL (0.2-0.9) Eos # (Auto) 0.2 10^3/uL 10^3/ uL (0.0-0.8) Baso # (Auto) 0.1 10^3/uL 10^3/ uL (0.0-0.1) Nucleated RBC % (a uto) 0 % % Nucleated RBCs # 0.0 /100WBC /100W BC Sodium 139 mmol/L mmol/L (136-145) Potassium 4.4 mmol/L mmol/L (3.5-5.1) Chloride 102 mmol/L mmol/L (98-107) Carbon Dioxide 27 mmol/L mmol/L (22-29) Anion Gap 14.4 (5-19) BUN 10 mg/dL mg/dL (6-20) Creatinine 0.7 mg/dL mg/dL (0.5-0.9) GFR Calculation 93.6 mL/min mL/mi n (90-130) Glucose 93 mg/dL mg/dL (65-115) Calculated Osmolal ity 287 mOsm/kg mOsm/ kg (285-295) Calcium 8.7 mg/dL mg/dL (8.5-10.5) Total Bilirubin 0.2 mg/dL mg/dL (0.15-1.2) AST 49 U/L H U/L (0-32) ALT 78 U/L H U/L (0-33) Alkaline Phosphata se 86 IU/L IU/L (35-105) Total Protein 7.7 g/dL g/dL (6.6-8.7) Albumin 4.4 g/dL g/dL (3.5-5.2) Globulin 3.3 g/dL g/dL (1.3-4.6) HCG, Qual Urine Color [place] (Yellow) Urine Appearance Sl cloudy A (CLEAR) Urine pH 7 (5-7) Ur Specific Gravit y 1.015 (1.005-1.030) Urine Protein 1+ H (Negative) Urine Glucose (UA) Norm (Normal) Urine Ketones 1+ H (Negative) Urine Blood 3+ H (Negative) Urine Nitrate Negative (Negative) Urine Bilirubin Neg (Negative) Urine Urobilinogen 1 mg/dL H mg/dL (Negative) Ur Leukocyte Bisi ase Trace H (Negative) Urine RBC Too numerous to c nt /hpf H /hpf (0-2) Urine WBC 10-15 /hpf H /hpf (0-5) Ur Squamous Epith Cells 15-25 /hpf H /hpf (0-5) Amorphous Sediment Not Reportable Urine Bacteria 2+ /hpf H /hpf (NONE) 06/13/21 01:10 WBC RBC Hgb Hct MCV MCH MCHC RDW Plt Count MPV Neut % (Auto) Lymph % (Auto) Falls % (Auto) Eos % (Auto) Baso % (Auto) Neut # (Auto) Lymph # (Auto) Falls # (Auto) Eos # (Auto) Baso # (Auto) Nucleated RBC % (a uto) Nucleated RBCs # Sodium Potassium Chloride Carbon Dioxide Anion Gap BUN Creatinine GFR Calculation Glucose Calculated Osmolal ity Calcium Total Bilirubin AST ALT Alkaline Phosphata se Total Protein Albumin Globulin HCG, Qual Negative (Negative) Urine Color Urine Appearance Urine pH Ur Specific Gravit y Urine Protein Urine Glucose (UA) Urine Ketones Urine Blood Urine Nitrate Urine Bilirubin Urine Urobilinogen Ur Leukocyte Bisi ase Urine RBC Urine WBC Ur Squamous Epith Cells Amorphous Sediment Urine Bacteria Imaging Data ^: CT Abd/Pel: Attestation: I personally reviewed and interpreted this imaging study as follows: Radiologist's impression: [id number] [address] [address] Scan Report Signed Patient: Domitila Caputo Unit #: [id number] : [id number] Age/Sex: 40 / F ADM Date: 06/13/21 Loc: ER Room/Bed: Attending Dr: Ordering Provider/Ordering MD: Rocky Becerra Date of Service: 06/13/21 Procedure(s): CT kidney stone 25467 Accession Number(s): [id number] Report Number: [id number] PROCEDURE INFORMATION: Exam: CT Abdomen And Pelvis Without Contrast Exam date and time: 06/13/2021 1:04 AM Age: 40 years old Clinical indication: Abdominal pain; Right; Prior surgery; Surgery type: Appy. Tubal ligation. ; Patient HX: RT flank pain. ; Additional info: Acute right flank pain TECHNIQUE: Imaging protocol: Computed tomography of the abdomen and pelvis without contrast. Radiation optimization: All CT scans at this facility use at least one of these dose optimization techniques: automated exposure control; mA and/or kV adjustment per patient size (includes targeted exams where dose is matched to clinical indication); or iterative reconstruction. COMPARISON: CT Abdomen/Pelvis Renal [id number] 05/28/2019 11:34 PM RADIATION DOSE METRICS: Total DLP (mGy-cm): 1632.43 FINDINGS: Lungs: The lung bases are clear. No effusion Liver: Normal. No mass. Gallbladder and bile ducts: No wall thickening, pericholecystic fluid or stones. Pancreas: Normal. No ductal dilation. Spleen: Normal. No splenomegaly. Adrenal glands: Normal. No mass. Kidneys and ureters: Normal. No hydronephrosis. Stomach and bowel: Unremarkable. No obstruction. No mucosal thickening. Appendix: The appendix is not positively identified. However, no secondary changes of appendicitis are present. Intraperitoneal space: Unremarkable. No free air. No significant fluid collection. Vasculature: Unremarkable. No abdominal aortic aneurysm. Lymph nodes: Unremarkable. No enlarged lymph nodes. Urinary bladder: No nephroureterolithiasis or urinary bladder stone. Reproductive: There has been a tubal ligation. Bones/joints: Unremarkable. No acute fracture. Soft tissues: Unremarkable. CT/CT kidney stone [id number] IMPRESSION: 1. No nephroureterolithiasis or urinary bladder stone. 2. The appendix is not positively identified. However, no secondary changes of appendicitis are present. Dictated By: Justin Bonilla Signed By: Justin Bonilla Signed Date/Time: 06/13/21243 DD/ 3 Discharge Plan Discharge Patient Disposition: Home Clinical Impression: Musculoskeletal back pain Condition: Stable Prescriptions: New Celebrex 100 mg capsule 100 mg PO BID PRN (Reason: pain) Qty: 20 RF: 0 cyclobenzaprine 7.5 mg tablet 7.5 mg PO BID PRN (Reason: muscle spasm) Qty: 20 RF: 0 No Action sulfamethoxazole-trimethoprim [Bactrim DS] 800-160 mg tablet 1 tab PO BID 7 Days Qty: 14 RF: 0 Multiple Vitamins Tablet 1 tab PO DAILY RF: 0 lisinopril 20 mg tablet 20 mg PO DAILY RF: 0 promethazine 25 mg tablet See Rx Instructions .ROUTE .COMPLEX RF: 0 Probiotic 1 cap PO DAILY RF: 0 Zofran 4 mg tablet 4 mg PO Q6H PRN (Reason: nausea and vomiting) Qty: 10 RF: 1 Discharge Orders: Discharge ED (Routine); Ordered 06/13/21 Ordered By: Rocky Becerra Discharge Diet: Regular Discharge Activity: Increase activity as tolerated Patient Instructions: Musculoskeletal Pain (ED), Back Pain (ED) Activity Restrictions/Additional Instructions: Follow-up with medical provider as directed in 7 to 10 days reevaluation. Take medications as prescribed. Cyclobenzaprine is a muscle relaxer and can cause some drowsiness so take at night before going to bed. Stretch back out daily and apply cold pack or heat on back to help with symptoms. Return to the ER or your medical provider if condition worsens. Please read and understand discharge instructions. Thank you for choosing [facility] for your healthcare needs today. Please realize this is an emergency room and that we are providing you with a medical screening exam and this may not be complete and all inclusive of all the testing and or work up that you may need to determine your ailment or severity of your illness. It is very important that you follow up as instructed or that you return to the Emergency Department should you have concerns or if your condition changes or worsens in any way. Stand Alone Forms: Work/School Release Coding Level of Care Code ED Home Health Care Social Worker for Yusef Garber Exam Comprehensive
[2021-06-13 01:45] LABS: Basophils # 0.1 10^3/uL (0.0-0.1); Basophils % 0.7 %; Eosinophils # 0.2 10^3/uL (0.0-0.8); Eosinophils % 1.8 %; Hematocrit 40.9 % (37.0-47.0); Hemoglobin 13.9 g/dL (11.5-15.3); Lymphocytes # 3.1 10^3/uL (0.8-4.8); Lymphocytes % 31.9 %; Mean Corpuscular Hemoglobin 32.9 pg (28.0-34.0); Mean Corpuscular Volume 96.9 fl (81-99); Mean Platelet Volume 10.3 fL (7.4-10.4); Monocytes # 0.8 10^3/uL (0.2-0.9); Monocytes % 7.7 %; Neutrophils # 5.64 10^3/uL (1.8-7.7); Neutrophils % 57.6 %; Nucleated Red Blood Cells % 0 %; Platelet Count 224 10^3/cmm (130-400); Red Blood Count 4.22 10^6/uL (4.1-5.3); Red Cell Distribution Width 12.2 % (12.1-15.1); White Blood Count 9.8 10^3/uL (4.0-10.0)
[2021-06-13 02:03] LABS: Add Urine Microscopic? YES; Bilirubin Urine Neg (Negative); Blood Urine 3+ (Negative); Glucose Urine UA Norm (Normal); Ketones Urine 1+ (Negative); Leukocyte Esterase Urine Trace (Negative); Nitrate Urine Negative (Negative); Protein Urine 1+ (Negative); Specific Gravity, Urine 1.015 (1.005-1.030); Urine Color Orange (Yellow); Urobilinogen Urine 1 mg/dL (Negative); pH Urine 7 (5-7)
[2021-06-13 02:05] LABS: Add Urine Culture? No; Bacteria Urine 2+ /hpf; RBC Urine TOO NUMEROUS TO CNT /hpf (0-2); Squamous Epithelial Cell Urine 15-25 /hpf (0-5)
[2021-06-13 02:06] LABS: HCG, Serum Qual Negative (Negative)
[2021-06-13 02:16] LABS: Alanine Aminotransferase 78 U/L (0-33); Albumin Level 4.4 g/dL (3.5-5.2); Alkaline Phosphatase 86 IU/L (35-105); Anion Gap 14.4 (5-19); Aspartate Amino Transferase 49 U/L (0-32); Blood Urea Nitrogen 10 mg/dL (6-20); Calcium 8.7 mg/dL (8.5-10.5); Carbon Dioxide 27 mmol/L (22-29); Chloride 102 mmol/L (98-107); Globulin 3.3 g/dL (1.3-4.6); Glomerular Filtration Rate 93.6 mL/min (90-130); Glucose 93 mg/dL (65-115); Osmolality Calculated 287 mOsm/kg (285-295); Potassium 4.4 mmol/L (3.5-5.1); Sodium 139 mmol/L (136-145); Total Bilirubin 0.2 mg/dL (0.15-1.2); Total Protein 7.7 g/dL (6.6-8.7)
[2021-06-13] MEDS: ketorolac 60 mg/2 mL INJ IM (02:55)
[2021-06-13] MEDS: orphenadrine 30 mg/mL Inj 2 mL 60 MG IM (02:57)
[2021-06-13 03:00] VITALS: BP 132/76; PULSE 74; RESP 18; O2SAT 99
[2021-06-13 03:14] VITALS: BP 132/76; PULSE 74; RESP 18; O2SAT 99
== END 2021-06-13 03:10 | disposition home or self-care (01) ==
PROVIDERS: Emergency Provider Physician Assistant
DX: M54.9 Dorsalgia, unspecified (principal); Z87.891 Personal history of nicotine dependence
CPT/HCPCS: 74176; 80053; 81001; 84703; 85025; 96372; 99283; J1885; J2360

== ENCOUNTER → 2021-09-14 15:32 | Outpatient (BNVA) | payer BC, SELFPAY | PROVIDERS: PCP Physician Assistant; Visit Provider Internal Medicine | DX: B19.20 Unspecified viral hepatitis C without hepatic coma (principal) | CPT/HCPCS: 82105; 87902 ==

== ENCOUNTER → 2021-11-08 11:00 | Outpatient (BNVA) | payer BC, SELFPAY | PROVIDERS: PCP Physician Assistant; Visit Provider Internal Medicine | DX: Z76.89 Persons encountering health services in other specified circumstances (principal) | CPT/HCPCS: 87522 ==

== ENCOUNTER → 2021-12-05 11:04 | Outpatient (BNVA) | payer BC, SELFPAY | PROVIDERS: PCP Physician Assistant; Visit Provider Internal Medicine | DX: B19.20 Unspecified viral hepatitis C without hepatic coma (principal) | CPT/HCPCS: 87522 ==

== ENCOUNTER → 2023-08-14 09:42 | Outpatient (BNVA) | payer BC, MEDICAID, SELFPAY | PROVIDERS: PCP Physician Assistant; Visit Provider Nurse Practitioner Family | DX: N89.8 Other specified noninflammatory disorders of vagina (principal) | CPT/HCPCS: 81000 ==

== ENCOUNTER → 2024-05-21 14:49 | Outpatient (BNVA) | payer BC, MEDICAID, SELFPAY | PROVIDERS: PCP Physician Assistant; Visit Provider Nurse Practitioner | DX: R39.9 Unspecified symptoms and signs involving the genitourinary system (principal) | CPT/HCPCS: 81000 ==

== ENCOUNTER 2024-08-27 09:59 | Emergency (ER) | payer MEDICAID, SELFPAY ==
[2024-08-27 10:29] VITALS: BP 143/87; PULSE 68; RESP 18; TEMP 36.8; O2SAT 97; BMI 28.2
--- NOTE | 2024-08-27 10:56 | CT_ITS ---
WS: [id number] CT ABDOMEN AND PELVIS WITH CONTRAST HISTORY: periumbilical pain TECHNIQUE: Imaging performed of the abdomen and pelvis with IV contrast. Single phase imaging of the abdomen. Coronal and sagittal reformats are submitted. All CT scans at [facility] use at least one of these dose optimization techniques: automated exposure control; mA and/or kV adjustment per patient size (includes targeted exams where dose is matched to clinical indication); or iterative reconstruction. IV CONTRAST: Omnipaque 350; 100 mL IV. Oral contrast: No DLP: 840.80 mGy.cm COMPARISON: 06/13/2021 Lower thorax: Lung bases are clear. Heart is normal size. No hiatal hernia. Liver/biliary system: Normal size with no intrahepatic dilatation. Gallbladder: Normal. No gallstones or wall thickening. No pericholecystic fluid. Pancreas: Normal size pancreas and pancreatic duct. No adjacent inflammation. Spleen: Normal size spleen. No mass or infarct. Adrenal glands: Normal. Right kidney: Normal. Left kidney: Normal. Extrarenal pelvis. Aorta: Normal. Lymphadenopathy: None. Free fluid: None. GI tract: Normally distended stomach. No small bowel obstruction. Moderate diffuse constipation. Prior appendectomy. No colitis. Abdominal wall: Unremarkable abdominal wall. No hernia. Pelvis: Small amount of free fluid in the pelvis appears physiologic. Bones: Unremarkable. CT/CT abdomen pelvis w con* [id number] IMPRESSION: 1. No acute abdominal or pelvic abnormalities. 2. Prior appendectomy. 3. Mild diffuse constipation. No obstruction. 4. No colitis. 5. Negative gallbladder. 6. No renal obstruction.
--- NOTE | 2024-08-27 10:58 | W.ED.ABDPA2 ---
HPI - Abdominal Pain General: Chief Complaint: Abdominal Pain Stated Complaint: abd pain Time Seen by Provider: 08/27/24 10:31 Source: patient Mode of arrival: ambulatory Limitations: no limitations History of Present Illness: This patient presents to the emergency department this morning because of abdominal pain. She states this current episode of pain began approximately 30 to 40 minutes prior to arrival. She states it came on suddenly and without provocation. She states it is in the area of her bellybutton and has not moved or radiated to any other location. She states that sharp in nature. She states she has had 2-3 similar episodes in the past month that have gone away without any intervention and they were short in duration however this is been more persistent and more severe. She states that she has not eaten today and states her last drink was couple coffee early this morning. She states she has had a bowel movement prior to the onset of symptoms. She has been urinated normally. She has had a prior appendectomy but otherwise no abdominal surgeries. 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 She takes no prescribed medications although was recently prescribed amoxicillin for an ear infection but has not initiated that medication. She is recovering addict and does not use any drugs currently alcohol etc. She has no history of peptic ulcer disease. She does not take Ozempic has not had any weight loss surgery etc. No history of pancreatitis kidney stones etc. No vomiting or diarrhea or change in her stools. MD elicited complaint: abdominal pain Associated Symptoms: Reports no associated symptoms; Denies chills, diarrhea, dysuria, fever(s), hematochezia, melena, nausea and vomiting Related Data Home Medications ?Medication ?Instructions ?Recorded ?Confirmed esomeprazole magnesium 40 mg 40 mg PO DAILY 08/27/24 08/27/24 capsule,delayed release (Nexium) Previous Rx's ?Medication ?Instructions ?Recorded amoxicillin 500 mg tablet 500 mg PO BID #20 tabs 06/09/24 hyoscyamine sulfate 0.125 mg 0.125 mg PO TID PRN dyspepsia #20 08/27/24 tablet (Levsin) tabs Allergies Allergy/AdvReac Type Severity Reaction Status Date / Time codeine Allergy throat and Verified 06/09/24 16:57 freddy swelling Review of Systems Const: Denies: fever(s) or chills ENMT: Denies: throat pain, odynophagia, nasal discharge or nasal congestion Card: Denies: chest pain or palpitations Resp: Denies: dyspnea, productive cough or non-productive cough GI: Reports: abdominal pain; Denies: nausea, vomiting, diarrhea, hematochezia or melena : Denies: flank pain, difficulty voiding, dysuria or urinary frequency Musc: Denies: neck pain, back pain, extremity pain or extremity swelling Skin/Breast: Denies: rash, pruritus or erythema Neuro: Denies: headache(s), numbness in extremities or weakness in extremities Psych: Denies: anxiety, depression or mood swings Endo: Denies: polyuria or polydipsia PFSH ED PFSH: Social History Smoking and tobacco/nicotine status: never used tobacco/nicotine Alcohol intake: former Substance/Drug Use: former Physical Exam Narrative: EXAM NARRATIVE: The patient is clearly uncomfortable but is able to engage in conversation into a goal-directed fashion. Const: COMMON NORMALS: average body habitus, patient oriented x3, healthy appearing and alert GENERAL APPEARANCE: in distress (Mild to moderate) HENMT: COMMON NORMALS: atraumatic, Normal nasal mucous membranes and turbinates present, moist oral mucous membranes and oropharynx normal HEAD & SCALP: atraumatic FACE & SINUS: normal facial exam NOSE: Normal nasal mucous membranes and turbinates present Eye: COMMON NORMALS: Equal, round and reactive pupils present, EOMs intact bilaterally, conjunctivae normal and no scleral icterus CONJUNCTIVA: Yes conjunctivae normal PUPIL: Yes Equal, round and reactive pupils present Neck/C-Spine: COMMON NORMALS: full ROM, no lymphadenopathy and no meningeal signs Chest: COMMONS NORMALS: normal inspection of the chest Resp: COMMON NORMALS: normal respiratory effort, No retractions, No use of accessory muscles and clear to auscultation bilaterally EFFORT & INSPECTION: Yes able to speak in complete sentences AUSCULTATION: clear to auscultation bilaterally Cardio: COMMON NORMALS: regular rate, regular rhythm, No murmurs present (Cardio) and Peripheral pulses 2+ throughout RATE: regular rate RHYTHM: regular rhythm PERIPHERAL PULSES: Peripheral pulses 2+ throughout GI: OTHER: Her abdomen appears normal to inspection. She has tenderness in the periumbilical region to palpation. No erythema, periumbilical mass etc. noted. Some voluntary guarding. No other abdominal tenderness or rebound noted. : COMMON NORMALS: Yes no CVA tenderness BLADDER/KIDNEY EXAM: Yes no CVA tenderness Back/Pelvis: COMMON NORMALS: no CVA tenderness, thoracic and lumbar spine normal to inspection, no thoracic nor lumbar tenderness and thoraco-lumbar ROM normal Extremity: COMMON NORMALS: normal to inspection, capillary refill normal, no calf tenderness and no pedal edema Neuro: COMMON NORMALS: patient oriented x3, moves all extremities, no focal motor deficits and no sensory deficits noted SENSORIUM/ORIENTATION: Yes alert MENINGEAL SIGNS: Yes no meningeal signs Psych: COMMON NORMALS: mental status grossly normal Skin: COMMON NORMALS: no rashes or lesions noted, no wounds and turgor normal GENERAL SKIN EXAM: no rashes or lesions noted and turgor normal Course Reevaluation(s): Reevaluation #1: Patient states she is feeling considerably better her symptoms are resolved. Repeat examination reveals no evidence of any findings that would suggest other potential etiology of her presentation. I shared with both she and her partner who is now here the lack of any significant pathologic findings today and it is and the uncertainty of what resulted in her symptoms. I did discuss the need for additional outpatient workup. She does have a primary care doctor and I suggest that she make an appoint with him in the next few days to a week to continue the outpatient workup which will likely include endoscopy, and other testing however at this point in time she does not have any evidence that suggest acute abdomen, bowel obstruction, nephrolithiasis, pancreatitis, acute infection etc. There is no evidence to suggest great vessel disease etc. She voiced understanding and was appreciative of care. We also discussed return precautions. We will give an empiric trial of Levsin for symptomatic relief as well. Time: 14:09 Vital Signs: Vital signs: Vital Signs Temperature 98.2 F 08/27/24 10:29 Pulse Rate 68 08/27/24 12:00 Respiratory Rate 18 08/27/24 10:29 Blood Pressure 128/91 08/27/24 12:00 Pulse Oximetry 96 08/27/24 12:00 Oxygen Delivery Me thod Room Air 08/27/24 12:00 MDM - Abdominal Pain Medical Decision Making Patient presented with acute abdominal pain as noted in history of present illness. Her clinical examination did not provide any distinct clues as to the etiology of her symptoms with a differential remains broad. Will proceed with laboratory evaluation and imaging as well as symptom control to determine if she has any evidence of an ongoing emergency medical condition at this time. Laboratories were reassuring including troponins which were negative for any evidence of ongoing ischemia. She had a unremarkable resting EKG as well. Imaging studies did not reveal any evidence of bowel obstruction, great vessel pathology, other potential intra-abdominal process. No evidence of by laboratory or imaging of pancreatitis, renal lithiasis, kidney infection, etc. The patient remained stable and improved with symptomatic treatment while in the emergency department. We had a discussion with both she and her partner regarding the lack of findings at this time to suggest etiology of her condition but certainly does not suggest a high likelihood of an emergency medical condition at this time and that while additional testing is indicated to help discern if there is any ongoing issue that can be done as an outpatient. Lab Data I reviewed the patient's lab results. 08/27/24 11:14 08/27/24 11:14 Labs/Radiology: Radiology Impressions Abdomen/Pelvis CT 08/27/24 10:56 IMPRESSION: 1. No acute abdominal or pelvic abnormalities. 2. Prior appendectomy. 3. Mild diffuse constipation. No obstruction. 4. No colitis. 5. Negative gallbladder. 6. No renal obstruction. Laboratory Results WBC 5.32 10^3/uL (3.29-11.43) 08/27/24 11:14 RBC 4.16 10^6/uL (3.85-5.65) 08/27/24 11:14 Hgb 12.90 g/dL (11.27-16.99) 08/27/24 11:14 Hct 39.8 % (36-47) 08/27/24 11:14 MCV 95.7 fl (85-98) 08/27/24 11:14 MCH 31.0 pg (27-33) 08/27/24 11:14 MCHC 32.4 g/dL (30-55) 08/27/24 11:14 RDW 12.3 % (12.1-15.1) 08/27/24 11:14 Plt Count 205 10^3/cmm (157-399) 08/27/24 11:14 MPV 10.5 fL (7.4-10.4) H 08/27/24 11:14 Neut % (Auto) 44.8 % 08/27/24 11:14 Lymph % (Auto) 46.4 % 08/27/24 11:14 Orange % (Auto) 6.4 % 08/27/24 11:14 Eos % (Auto) 1.3 % 08/27/24 11:14 Baso % (Auto) 0.9 % 08/27/24 11:14 Neut # (Auto) 2.38 10^3/uL (1.8-7.7) 08/27/24 11:14 Lymph # (Auto) 2.5 10^3/uL (0.8-4.8) 08/27/24 11:14 Orange # (Auto) 0.3 10^3/uL (0.2-0.9) 08/27/24 11:14 Eos # (Auto) 0.1 10^3/uL (0.0-0.8) 08/27/24 11:14 Baso # (Auto) 0.1 10^3/uL (0.0-0.1) 08/27/24 11:14 Nucleated RBC % (auto) 0 % 08/27/24 11:14 Nucleated RBCs # 0.0 /100WBC 08/27/24 11:14 Sodium 137 mmol/L (136-145) 08/27/24 11:14 Potassium 4.0 mmol/L (3.5-5.1) 08/27/24 11:14 Chloride 103 mmol/L (98-107) 08/27/24 11:14 Carbon Dioxide 23 mmol/L (22-29) 08/27/24 11:14 Anion Gap 15.0 (5-19) 08/27/24 11:14 BUN 13 mg/dL (6-20) 08/27/24 11:14 Creatinine 0.6 mg/dL (0.5-0.9) 08/27/24 11:14 GFR Calculation 110.2 mL/min (90-130) 08/27/24 11:14 Glucose 83 mg/dL (65-115) 08/27/24 11:14 Calculated Osmolality 283 mOsm/kg (285-295) L 08/27/24 11:14 Calcium 8.6 mg/dL (8.5-10.5) 08/27/24 11:14 Total Bilirubin 0.4 mg/dL (0.15-1.2) 08/27/24 11:14 AST 23 U/L (0-32) 08/27/24 11:14 ALT 20 U/L (0-33) 08/27/24 11:14 Alkaline Phosphatase 63 U/L (35-105) 08/27/24 11:14 Troponin T Baseline < 6 ng/L (0-10) 08/27/24 11:14 Total Protein 7.1 g/dL (6.6-8.7) 08/27/24 11:14 Albumin 4.3 g/dL (3.5-5.2) 08/27/24 11:14 Globulin 2.8 g/dL (1.3-4.6) 08/27/24 11:14 Lipase 30 U/L (13-60) 08/27/24 11:14 HCG, Qual Negative (Negative) 08/27/24 12:05 Urine Color Yellow (Yellow) 08/27/24 12:05 Urine Appearance Clear (CLEAR) 08/27/24 12:05 Urine pH 6.0 (5-7) 08/27/24 12:05 Ur Specific [place] 1.011 (1.005-1.030) 08/27/24 12:05 Urine Protein Negative (Negative) 08/27/24 12:05 Urine Glucose (UA) Negative (Normal) 08/27/24 12:05 Urine Ketones Negative (Negative) 08/27/24 12:05 Urine Blood Negative (Negative) 08/27/24 12:05 Urine Nitrate Negative (Negative) 08/27/24 12:05 Urine Bilirubin Negative (Negative) 08/27/24 12:05 Urine Urobilinogen 0.2 mg/dL (Negative) 08/27/24 12:05 Ur Leukocyte Esterase Negative (Negative) 08/27/24 12:05 Urine RBC 0-2 /hpf (0-2) 08/27/24 12:05 Urine WBC 0-5 /hpf (0-5) 08/27/24 12:05 Ur Squamous Epith Cells 0-5 /hpf (0-5) 08/27/24 12:05 Amorphous Sediment Not Reportable 08/27/24 12:05 Urine Bacteria None seen /hpf (NONE) 08/27/24 12:05 Hyaline Casts 0-4 /lpf H 08/27/24 12:05 All radiology interpretation(s) finalized by discharge EKG Data EKG 2: I personally reviewed and interpreted this EKG as follows: Interpretation: Repeat electrocardiogram this visit reveals a ventricular rate of 53 beats per beats per minute consistent with sinus bradycardia. Normal SC interval, QRS duration, corrected QT interval. Normal axis. Consistent with sinus bradycardia without any acute ST-T wave changes or other suggestion of ischemia. Discharge Plan Discharge Patient Disposition: Home Clinical Impression: Abdominal pain Qualifiers: Abdominal location: periumbilical Qualified Code(s): R10.33 - Periumbilical pain Condition: Stable Prescriptions: New hyoscyamine sulfate [Levsin] 0.125 mg tablet 0.125 mg PO TID PRN (Reason: dyspepsia) Qty: 20 0RF No Action amoxicillin 500 mg tablet 500 mg PO BID Qty: 20 0RF esomeprazole magnesium [Nexium] 40 mg Capsule,Delayed Release(Dr/Ec) 40 mg PO DAILY Discharge Orders: Discharge ED (Routine); Ordered 08/27/24 Ordered By: Neto Belle Referrals: Es Nicholson MD [Primary Care Provider] - 4-7 days (ER follow-up for abdominal pain potentially needing additional outpatient workup) Discharge Diet: Usual diet Discharge Activity: Resume usual activity Patient Instructions: Abdominal Pain (ED), Opioid Safety, Pain Management Activity Restrictions/Additional Instructions: As discussed your evaluation in the emergency department today did not find any evidence of a serious cause of your pain. However as conditions can evolve and additional evaluation is many times needed to reach a final determination is important that you follow-up with your regular doctor within the next week to discuss additional testing or other therapies that may be indicated. If you have persistent worsening or other concerning symptoms at any time you are welcome to return to the emergency department for reevaluation. Print Language: Yi Coding Level of Care Code ED Quality Management Coordinator for Yusef Garber
[2024-08-27] MEDS: HYDROmorphone 0.5 MG/0.5 ML INJ 1 MG IVP (11:19)
[2024-08-27] MEDS: sodium chloride 0.9% 1,000 ML 999 ML IV (11:19)
[2024-08-27] MEDS: ondansetron 2 mg/ML SDV 2 mL 4 MG IVP (11:19)
[2024-08-27 11:40] LABS: Basophils # 0.1 10^3/uL (0.0-0.1); Basophils % 0.9 %; Eosinophils # 0.1 10^3/uL (0.0-0.8); Eosinophils % 1.3 %; Hematocrit 39.8 % (36-47); Lymphocytes # 2.5 10^3/uL (0.8-4.8); Lymphocytes % 46.4 %; Mean Corpuscular HGB Conc 32.4 g/dL (30-55); Mean Corpuscular Volume 95.7 fl (85-98); Mean Platelet Volume 10.5 fL (7.4-10.4); Monocytes # 0.3 10^3/uL (0.2-0.9); Monocytes % 6.4 %; Neutrophils # 2.38 10^3/uL (1.8-7.7); Neutrophils % 44.8 %; Nucleated Red Blood Cells % 0 %; Platelet Count 205 10^3/cmm (157-399); Red Blood Count 4.16 10^6/uL (3.85-5.65); Red Cell Distribution Width 12.3 % (12.1-15.1); White Blood Count 5.32 10^3/uL (3.29-11.43)
[2024-08-27 11:42] VITALS: BP 110/78; PULSE 66; O2SAT 100
[2024-08-27 11:51] LABS: Alanine Aminotransferase 20 U/L (0-33); Albumin Level 4.3 g/dL (3.5-5.2); Alkaline Phosphatase 63 U/L (35-105); Aspartate Amino Transferase 23 U/L (0-32); Blood Urea Nitrogen 13 mg/dL (6-20); Calcium 8.6 mg/dL (8.5-10.5); Carbon Dioxide 23 mmol/L (22-29); Chloride 103 mmol/L (98-107); Creatinine Clr Calc Pharmacy 158.9477; Globulin 2.8 g/dL (1.3-4.6); Glomerular Filtration Rate 110.2 mL/min (90-130); Glucose 83 mg/dL (65-115); Lipase 30 U/L (13-60); Osmolality Calculated 283 mOsm/kg (285-295); Sodium 137 mmol/L (136-145); Total Bilirubin 0.4 mg/dL (0.15-1.2); Total Protein 7.1 g/dL (6.6-8.7)
[2024-08-27 12:00] VITALS: BP 128/91; PULSE 68; O2SAT 96
[2024-08-27 12:14] LABS: Bilirubin Urine Negative (Negative); Blood Urine Negative (Negative); Glucose Urine UA Negative (Normal); Ketones Urine Negative (Negative); Leukocyte Esterase Urine Negative (Negative); Nitrate Urine Negative (Negative); Protein Urine Negative (Negative); Specific Gravity, Urine 1.011 (1.005-1.030); Urine Appearance Clear (CLEAR); Urine Color Yellow (Yellow); Urobilinogen Urine 0.2 mg/dL (Negative)
[2024-08-27 12:20] LABS: Add Urine Microscopic? YES; Bacteria Urine None Seen /hpf; Hyaline Casts Urine 0-4 /lpf; RBC Urine 0-2 /hpf (0-2); Squamous Epithelial Cell Urine 0-5 /hpf (0-5); WBC Urine 0-5 /hpf (0-5)
[2024-08-27 12:34] LABS: HCG Qualitative Urine. Negative (Negative)
[2024-08-27] MEDS: iohexol 350 mg/mL 500 mL Btl (per mL) IV (12:43)
--- NOTE | 2024-08-27 13:28 | ECG_ITS ---
[facility] Test Date: 2024-08-27 Pat Name: Domitila Caputo Department: Room: Gender: Female Claims Examiner: : 1980 Requested By: Neto Belle Order Number: [id number] Canales MD: Yin Zaidi M.D. Measurements Intervals [place] Rate: 53 P: 25 MS: 179 QRS: 47 QRSD: 90 T: 44 QT: 460 QTc: 433 Interpretive Statements SINUS BRADYCARDIA Compared to ECG 07/28/2019 20:51:48 Ectopic atrial rhythm no longer present Right-axis deviation no longer present T-wave abnormality no longer present Possible ischemia no longer present Electronically Signed On 08-27-2024 22:13:58 CDT by Yin Zaidi M.D. [email or web address]
[2024-08-27 13:52] LABS: Troponin(5th) Baseline < 6 ng/L (0-10)
[2024-08-27] MEDS: hyoscyamine ODT 0.125 mg Tablet PO (13:56)
[2024-08-27 14:25] LABS: Troponin 5 2HR Delta 0.00001 ABS# (0-10)
[2024-08-27 14:36] VITALS: BP 102/67; PULSE 67; O2SAT 97
== END 2024-08-27 14:37 | disposition home or self-care (01) ==
PROVIDERS: Emergency Provider Emergency Medicine; PCP Family Medicine
DX: R10.33 Periumbilical pain (principal)
CPT/HCPCS: 36415; 74177; 80053; 81001; 81025; 83690; 84484; 85025; 93005; 96361; 96374; 96375; 99285; J1171; J2405; J7030; J9999

== ENCOUNTER → 2024-09-05 14:29 | Outpatient (BNVA) | payer MEDICAID, SELFPAY | PROVIDERS: PCP Family Medicine; Visit Provider Emergency Medicine | DX: R39.9 Unspecified symptoms and signs involving the genitourinary system (principal) | CPT/HCPCS: 81000 ==

== ENCOUNTER 2024-09-19 10:50 | Outpatient (CLI) | payer SELFPAY ==
--- NOTE | 2024-09-19 10:54 | MM_ITS ---
WS: [id number] VIEWS: MLO and CC views both breasts. 3D digital tomosynthesis is also included in this exam. No priors. Baseline study. Findings: The breasts are extremely dense, which lowers the sensitivity of mammography. No suspicious mass, tumor calcification or architectural distortion. MM/MM scr BI tomosynthesis [id number] Impression: BI-RADS: 2 - Benign FOLLOW-UP: 1 Year Follow-up This mammogram was also analyzed by the Computer Aided Detection System [employer]2 [employer]ag [employer] Film [employer].
== END 2024-09-19 10:51 | disposition home or self-care (01) ==
PROVIDERS: PCP Family Medicine; Visit Provider Family Medicine
DX: Z12.31 Encounter for screening mammogram for malignant neoplasm of breast (principal); R92.343 Mammographic extreme density, bilateral breasts
CPT/HCPCS: 77063; 77067